=== PATIENT | male | born 1995 | race Caucasian/White ===

== ENCOUNTER 2022-04-08 15:38 | Emergency (ER) | payer OTHER ==
[~2022-04-08] VITALS: Ht 175.3 cm; Wt 83.9 kg
[2022-04-08 15:40] VITALS: BP 137/85
--- NOTE | 2022-04-08 16:10 | NUR ---
PT WALKED TO ROOM4 WITH STEADY GAIT. CO DIZZINESS AND WEAKNESS X 1 DAY. NO FURHTER CO. PT WAS A/OX4, SPEAKS FULL SENTENCES, FOLLOW COMMAND, NO SOB.
[2022-04-08 16:38] LABS: BASOPHILS # (AUTO) 0.1 K/uL (0.00-0.22); BASOPHILS % (AUTO) 0.9 % (0.0-2.0); EOSINOPHILS # (AUTO) 0.1 K/uL (0-0.4); EOSINOPHILS % (AUTO) 0.9 % (0.0-4.0); HEMATOCRIT 50.2 % (36-52); HEMOGLOBIN 17.6 g/dL (12.0-18.0); LYMPHOCYTES # (AUTO) 3.6 K/uL (2.0-11.5); LYMPHOCYTES % (AUTO) 33.6 % (20.5-51.1); MEAN CORPUSCULAR HEMOGLOBIN 29 pg (27-31); MEAN CORPUSCULAR HGB CONC 35 g/dL (33-37); MEAN CORPUSCULAR VOLUME 83.8 fL (80-94); MONOCYTES # (AUTO) 0.9 K/uL (0.8-1.0); MONOCYTES % (AUTO) 8.1 % (1.7-9.3); NEUTROPHILS % (AUTO) 56.5 % (42.2-75.2); PLATELET COUNT (AUTO) 293 K/uL (140-450); RED BLOOD CELL COUNT(AUTO) 5.99 MIL/uL (4.20-6.10); RED CELL DISTRIBUTION WIDTH 13.5 % (11.6-13.7); WHITE BLOOD COUNT (AUTO) 10.6 K/uL (4.8-10.8)
[2022-04-08 16:59] LABS: ANION GAP 12.1 (8-16); CARBON DIOXIDE 30.1 mmol/L (21-32); POTASSIUM 4.2 mmol/L (3.5-5.1); TOTAL BILIRUBIN 1.1 mg/dL (0.0-1.0)
[2022-04-08 17:16] VITALS: BP 121/75
--- NOTE | 2022-04-08 17:16 | NUR ---
Patient discharged with v/s stable. Written and verbal after care instructions given and explained. Patient verbalized understanding. Ambulatory with steady gait. All questions addressed prior to discharge. Advised to follow up with PMD.
== END 2022-04-08 17:16 | disposition home or self-care (01) ==
LOC: MED 15:38
DX: R53.1 Weakness (principal)
CPT/HCPCS: 36415; 80053; 85025; 99283

== ENCOUNTER 2022-04-10 14:26 | Emergency (ER) | payer OTHER ==
[~2022-04-10] VITALS: Ht 170.2 cm; Wt 88.5 kg
[2022-04-10 14:34] VITALS: BP 158/102
--- NOTE | 2022-04-10 14:50 | NUR ---
BIB SELF C/O SORE THROAT X 2 MONTHS. SEEN HERE 2 DAYS AGO SAME S/S.
[2022-04-10] MEDS ORDERED: PROM118S5 PO (16:29)
[2022-04-10] MEDS ORDERED: HYDR-635 PO (16:29)
[2022-04-10] MEDS ORDERED: SUD30 PO (16:29)
[2022-04-10] MEDS ORDERED: BENZ-300 PO (16:29)
[2022-04-10 16:46] VITALS: BP 150/99
--- NOTE | 2022-04-10 16:46 | NUR ---
Patient discharged with v/s stable. Written and verbal after care instructions given and explained. Patient alert, oriented and verbalized understanding of instructions. Ambulatory with steady gait. All questions addressed prior to discharge. ID band removed. Patient advised to follow up with PMD. Rx of CEPACOL SORE, HYDROXYZINE,PROMETHAZINE, SUDAFED, given. Patient educated on indication of medication including possible reaction and side effects. Opportunity to ask questions provided and answered.
== END 2022-04-10 16:46 | disposition home or self-care (01) ==
LOC: MED 14:26
DX: J06.9 Acute upper respiratory infection, unspecified (principal); F41.9 Anxiety disorder, unspecified
CPT/HCPCS: 99283

== ENCOUNTER 2022-04-23 12:46 | Emergency (ER) | payer OTHER ==
[~2022-04-23] VITALS: Ht 172.7 cm; Wt 74.8 kg
[~2022-04-23 12:46] MED LIST: BENZ-300 PO; HYDR-635 PO; PROM118S5 PO; SUD30 PO
[2022-04-23 12:58] VITALS: BP 147/88
--- NOTE | 2022-04-23 13:00 | NUR ---
Patient ambulated with steady gait to bed 2.
--- NOTE | 2022-04-23 13:17 | NUR ---
PT RECEIVED, CARE ASSUMED. PT A/OX4. PT PRESENTS SELF TO ER WITH C/O ABDO PAIN. PT PIETER N/V/D. PT IN ROOM AWAITING TO BE SEEN BY
[2022-04-23 14:17] VITALS: BP 132/75
== END 2022-04-23 14:19 | disposition home or self-care (01) ==
LOC: MED 12:46
DX: K21.9 Gastro-esophageal reflux disease without esophagitis (principal)
CPT/HCPCS: 99282

== ENCOUNTER 2022-04-25 23:45 | Emergency (ER) | payer OTHER ==
[~2022-04-25] VITALS: Ht 170.2 cm; Wt 83.9 kg
[2022-04-25 23:49] VITALS: BP 125/80
--- NOTE | 2022-04-25 23:52 | NUR ---
TO LOBBY A/W BED AMBULATORY
--- NOTE | 2022-04-26 00:25 | NUR ---
PATIENT SWABBED AND HANDED TO LAB
[2022-04-26 00:32] LABS: BASOPHILS # (AUTO) 0.1 K/uL (0.00-0.22); BASOPHILS % (AUTO) 0.9 % (0.0-2.0); EOSINOPHILS # (AUTO) 0.2 K/uL (0-0.4); EOSINOPHILS % (AUTO) 2.4 % (0.0-4.0); HEMATOCRIT 49.2 % (36-52); HEMOGLOBIN 16.7 g/dL (12.0-18.0); LYMPHOCYTES # (AUTO) 4.3 K/uL (2.0-11.5); MEAN CORPUSCULAR HEMOGLOBIN 28 pg (27-31); MEAN CORPUSCULAR HGB CONC 34 g/dL (33-37); MEAN CORPUSCULAR VOLUME 83.3 fL (80-94); MONOCYTES # (AUTO) 0.6 K/uL (0.8-1.0); MONOCYTES % (AUTO) 7.3 % (1.7-9.3); NEUTROPHILS # (AUTO) 3.4 K/uL (1.8-7.7); NEUTROPHILS % (AUTO) 39.4 % (42.2-75.2); PLATELET COUNT (AUTO) 302 K/uL (140-450); WHITE BLOOD COUNT (AUTO) 8.6 K/uL (4.8-10.8)
[2022-04-26 00:51] LABS: ANION GAP 13.6 (8-16); CARBON DIOXIDE 30.4 mmol/L (21-32); CREATININE 1.1 mg/dL (0.6-1.3)
--- NOTE | 2022-04-26 02:20 | NUR ---
PT TO BED 12
[2022-04-26] MEDS ORDERED: ATA25 PO (03:16)
[2022-04-26 03:23] VITALS: BP 142/74
[2022-04-26] MEDS ORDERED: cefTRIAXone 1,000 MG VIAL ONE (03:26)
== END 2022-04-26 03:23 | disposition home or self-care (01) ==
LOC: MED 23:45
DX: F41.9 Anxiety disorder, unspecified (principal); Z20.822 Contact with and (suspected) exposure to COVID-19
CPT/HCPCS: 36415; 80048; 85025; 99283; J0696